=== PATIENT | female | born 1965 | race Caucasian/White ===

== ENCOUNTER 2017-01-11 06:38 | Day surgery (SDC) | payer BC ==
[2017-01-09 17:32] LABS: HEMOGLOBIN 13.8 g/dL (12.0-16.0)
[2017-01-09 17:56] LABS: BUN (BLOOD UREA NITROGEN) 17 MG/DL (6-23); CALCIUM, SERUM 9.5 MG/DL (8.5-10.4); CHLORIDE, SERUM 102 MMOL/L (96-112); CO2 (CARBON DIOXIDE) 27 MMOL/L (24-34); GFR AFRICAN AMERICAN 98 ML/MIN (>=60); GFR NON AFRICAN AMERICAN 84 ML/MIN (>=60); SODIUM, SERUM 138 MMOL/L (135-148)
[2017-01-09 17:58] LABS: GLUCOSE, SERUM 84 MG/DL (60-99)
--- NOTE | ~2017-01-11 | OP ---
Record Of Operation [facility] [address] [place]. [address] NAME: JASMEET VELEZ : 61 STATUS : REG [place] PAT#: [id number] AGE: 51 ADM/REG DATE : 01/11/17 MR#: [id number] REPORT SERV DATE: 01/11/17 DICTATED BY: LOLIS PULIDO DATE: 01/11/17 REPORT STATUS : Draft TRANSCRIBED BY: MODL DATE: 01/11/17 DATE OF PROCEDURE: 01/11/2017 PREOPERATIVE DIAGNOSIS: High-grade left subclavian artery stenosis with left upper extremity ischemia. POSTOPERATIVE DIAGNOSIS: High-grade left subclavian artery stenosis with left upper extremity ischemia. PROCEDURE: 1. Ultrasound-guided percutaneous access, right common femoral artery. 2. Arch aortogram. 3. Selective catheterization, left subclavian artery, with the left subclavian arteriogram. SURGEON: Lolis Pulido M.D. ENVIRONMENTAL HEALTH NURSE: Jorge Luis. ANESTHESIA: Local with MAC. ESTIMATED BLOOD LOSS: 20 mL. CONTRAST: 63 mL. IV FLUIDS: 500 mL. COMPLICATIONS: None. INDICATIONS: Ms. Velez is a pleasant 51-year-old female, with left upper extremity ischemic symptoms. She was found to have high-grade left subclavian artery stenosis. She is brought today for arteriogram and possible percutaneous treatment of the stenosis. DETAILS OF PROCEDURE: After informed consent was obtained, the patient was brought to the endovascular suite, and placed in supine position. After administration of IV sedation, she is prepped and draped in usual sterile fashion. A time-out was performed. I commenced the procedure with ultrasound-guided percutaneous access to the right common femoral artery. This was done after anesthetizing the right groin with local anesthetic. A permanent image of the artery documenting its patency was saved and stored in the patient's chart. I accessed with a micropuncture needle and passed a micropuncture wire, and confirmed intra- arterial under fluoroscopy. I then placed a micropuncture sheath. I then up-sized to a 5- Telugu sheath over a Bentson wire. I advanced the Bentson wire and Zoe flush catheter into the aortic arch. We systemically heparinized. I then performed arch aortogram. It showed a patent nonaneurysmal aortic arch. There was a normal arch vessel configuration. It was a type 1 arch. The origins of the innominate and left common carotid artery were widely patent with no stenosis. The left subclavian origin was patent, but just beyond the Record Of Operation [address] [place]. [address] NAME: JASMEET VELEZ : 61 STATUS : REG [place] PAT#: [id number] AGE: 51 ADM/REG DATE : 01/11/17 MR#: [id number] REPORT SERV DATE: 01/11/17 DICTATED BY: LOLIS PULIDO. DATE: 01/11/17 REPORT STATUS : Draft TRANSCRIBED BY: NIKKI DATE: 01/11/17 origin, there was a long segment stenosis. The left subclavian artery also takes a sharp near 90 degree turns just beyond the stenosis. There was also stenosis with high-grade just distal to the vertebral artery origin. After that, I used a bur 2 and Glidewire to engage the left subclavian origin. We upsized to a 65 sheath. Multiple views were taken, left subclavian artery which confirmed a long segment high-grade stenosis proximal to the vertebral artery, but again a high-grade stenosis just distal vertebral artery. Given the long length of the stenosis, the stenosis beyond the vertebral artery, and the sharp turn in the subclavian artery was not felt to be a good candidate for stent placement. As a result, wires and catheters were removed. Right femoral artery arteriogram shows the puncture site in the distal common femoral artery. As a result ProGlide closure device was deployed for hemostasis. The patient tolerated the procedure well with no complications. I was present for this entire case as dictated. She will be recommended for carotid subclavian bypass. AUGUST/NIKKI Lolis Pulido M.D. / [id number] CC: Elsa Zafar M.D. Gt Durant M.D. Nolan Falcon M.D., [facility]
[~2017-01-11 06:38] MED LIST: ACET500CAP PO; ADVIL PO; ASAB PO; BIEST PO; BIOTIN5 MG PO; CENTRUM PO; DIOV80 PO; FORTAMET1000 MG PO; GLUCPH PO; MAX25 PO; NASACORTAQ NAS; NASONEX NAS; NEXIUM40 PO; PLAQ200B PO; PROG PO; SYN.05 PO; TES PO; VITAMIN B PO; VITAMIN D2000 UNIT PO; VITAMIN D31000 UNIT PO; Z300 PO; ZOCOR40 PO
[2017-01-16] MEDS ORDERED: BIOIDENTICAL HORMONE SL (15:08)
[2017-01-16] MEDS ORDERED: FIORICET 50-301 EACH PO (15:09)
== END 2017-01-11 17:03 | disposition home or self-care (01) ==
LOC: SDC 06:38 → PREPOST2 14:05 → SSU2 15:16
PROVIDERS: Surgery
PROC: B312YZZ Fluoroscopy of Left Subclavian Artery using Other Contrast (ICD-10-PCS; principal; 2017-01-11 08:15)
DX: I70.8 Atherosclerosis of other arteries (principal); M06.9 Rheumatoid arthritis, unspecified; J45.909 Unspecified asthma, uncomplicated; E11.9 Type 2 diabetes mellitus without complications; E03.9 Hypothyroidism, unspecified; E78.5 Hyperlipidemia, unspecified; I10 Essential (primary) hypertension; I25.10 Atherosclerotic heart disease of native coronary artery without angina pectoris; I24.9 Acute ischemic heart disease, unspecified; I82.409 Acute embolism and thrombosis of unspecified deep veins of unspecified lower extremity; Z88.0 Allergy status to penicillin; Z88.5 Allergy status to narcotic agent; Z79.84 Long term (current) use of oral hypoglycemic drugs; Z79.82 Long term (current) use of aspirin; Z79.899 Other long term (current) drug therapy
CPT/HCPCS: 36215; 36221; 75710; 76937; 80048; 82962; 84703; 85014; 85018; 93005; A9270-GY; C1760; C1769; C1894; J2250; J2370; J2405; J3010; Q9966

== ENCOUNTER 2017-01-17 13:13 | Inpatient (IN) | payer BC ==
--- NOTE | ~2017-01-17 | OP ---
Record Of Operation [facility] [address] [place]. [address] NAME: JASMEET VELEZ : 61 STATUS : ADM IN PAT#: [id number] AGE: 51 ADM/REG DATE : 01/17/17 MR#: [id number] REPORT SERV DATE: 01/18/17 DICTATED BY: LOLIS PULIDO DATE: 01/18/17 REPORT STATUS : Draft TRANSCRIBED BY: MODL DATE: 01/18/17 DATE OF PROCEDURE: 01/17/2017 PREOPERATIVE DIAGNOSES: High-grade left subclavian artery stenosis with left upper extremity ischemic symptoms and left subclavian steal. POSTOPERATIVE DIAGNOSES: High-grade left subclavian artery stenosis with left upper extremity ischemic symptoms and left subclavian steal. PROCEDURE: Left common carotid artery to left subclavian artery bypass (6 mm Hemashield graft). SURGEON: Lolis Pulido M.D. CRUDE UNIT OPERATOR: Jorge Luis. ANESTHESIA: General endotracheal. ESTIMATED BLOOD LOSS: 50 mL. COMPLICATIONS: None. INDICATIONS: Ms. Velez is a pleasant 51-year-old female with the above listed symptoms due to left subclavian artery lesion that is not amenable to percutaneous treatment. She is recommended for left carotid subclavian bypass. DETAILS OF PROCEDURE: After informed consent was obtained, the patient was brought to the operating room, placed in supine position. After administration of anesthesia, she was intubated. She was prepped and draped in the usual sterile fashion. A time-out was performed. I performed a left supraclavicular incision. I dissected down through the platysma and subcutaneous tissues with cautery. The clavicular head of the sternocleidomastoid was divided. The scalene fat pad was mobilized, cephalad and laterally. The thoracic duct was identified and ligated. External jugular vein was identified, ligated, and then transected. We exposed the anterior scalene. We identified the phrenic nerve. It was mobilized and preserved. The scalene was divided under direct visualization. Underlying scalene was subclavian. There was no palpable pulse on the subclavian artery consistent with a high-grade stenosis or near occlusion. We mobilized the subclavian and encircled it proximally and distally with vessel loops. Then through the same incision, we exposed the proximal left common carotid artery. It is pulsatile and healthy in appearance. We encircled it with vessel loops proximally and distally. The vagus nerve was identified and preserved. After that, we systemically heparinized. We selected a 6 mm Hemashield graft. After the heparin circulated, we clamped the subclavian artery proximally and distally. We performed arteriotomy and enlarged with an aortic punch. We then performed end-to-side anastomosis of the Hemashield graft of the subclavian artery with running 5-0 HS 7. We then performed end-to-side anastomosis of the other end of the graft to the left common carotid artery. This was sewn in place end-to-side with running 5-0 HS-7. We Record Of Operation [facility] [address] [place]. [address] NAME: JASMEET VELEZ : 61 STATUS : ADM IN [facility]#: [id number] AGE: 51 ADM/REG DATE : 01/17/17 MR#: [id number] REPORT SERV DATE: 01/18/17 DICTATED BY: LOLIS PULIDO DATE: 01/18/17 REPORT STATUS : Draft TRANSCRIBED BY: NIKKI DATE: 01/18/17 flushed after completing the suture line of the carotid artery. We flushed distally. We then released the proximal carotid clamp and subclavian clamps with the distal carotid clamp for further flushing. After several seconds, the carotid clamp was released. Suture lines were hemostatic. The graft and subclavian artery obviously pulsatile. Normal Doppler signals were appreciated in the proximal distal common carotid artery as well as the subclavian artery. Palpable radial pulse was dissected at the wrist. Strong Doppler signals were detected at the wrist, which completely disappeared with temporary occlusion of the bypass graft. After that, we irrigated with sterile saline. We ensured hemostasis. We checked again for lymphatic leak and there was none. We then placed a round 15 Morris drain in the base of the incision. It has brought out a separate stab incision laterally. Secured the skin with 2-0 nylon. After that, we covered the bypass graft with the scalene fat pad. We reapproximated the clavicular heads of the sternocleidomastoid muscle. We then closed the platysmal layer with running 2-0 Vicryl. The skin was closed with running 4-0 Monocryl in a subcuticular fashion. Dermabond was applied. The patient tolerated the procedure well. There were no complications. I was present for this entire case as dictated. While still in the operating room, the patient was allowed to awaken from anesthesia. She followed commands and moved all four extremities symmetrically. AUGUST/NIKKI Lolis Pulido M.D. / [id number] CC: Elsa Zafar M.D.
[~2017-01-17 13:13] MED LIST changes: +BIOIDENTICAL HORMONE SL; +FIORICET 50-301 EACH PO
[2017-01-17 20:44] LABS: HEMATOCRIT 37.2 % (36.0-48.0); HEMOGLOBIN 12.5 g/dL (12.0-16.0)
[2017-01-19 09:21] LABS: BASOPHILS 0.4 %; BASOPHILS ABSOLUTE 0.04 10/3/uL (0.0-0.16); EOSINOPHILS 1.2 %; EOSINOPHILS ABSOLUTE 0.11 10/3/uL (0.0-0.53); HEMATOCRIT 37.6 % (36.0-48.0); HEMOGLOBIN 12.1 g/dL (12.0-16.0); IMMATURE GRANULOCYTES 0.4 %; IMMATURE GRANULOCYTES ABSOLUTE 0.04 10/3/uL (0.0-0.11); LYMPHOCYTES 34.1 %; LYMPHOCYTES ABSOLUTE 3.25 10/3/uL (0.67-4.30); MEAN CORPUSCULAR HEMOGLOB 30.9 pg (26.0-34.0); MEAN PLATELET VOLUME 10.4 fL (9.2-13.0); MONOCYTES ABSOLUTE 0.95 10/3/uL (0.21-1.20); NEUTROPHILS 53.9 %; NEUTROPHILS ABSOLUTE 5.14 10/3/uL (2.02-8.40); PLATELET COUNT 226 10/3/uL (150-400); RBC DISTRIBUTION WIDTH 13.2 % (12.0-16.0); RED CELL COUNT 3.92 10/6/uL (4.0-5.6)
[2017-01-19 09:22] LABS: MANUAL DIFF NO %; MEAN CORPUS HGB CONC 32.2 g/dL (32.0-36.0); MEAN CORPUSCULAR VOLUME 95.9 fL (80-100); WHITE BLOOD CELLS 9.5 10/3/uL (4.5-10.5)
[2017-01-19 09:45] LABS: ALBUMIN 3.4 G/DL (3.5-5.0); ALKALINE PHOSPHATASE 48 U/L (45-117); BUN (BLOOD UREA NITROGEN) 20 MG/DL (6-23); CALCIUM, SERUM 8.6 MG/DL (8.5-10.4); CHLORIDE, SERUM 111 MMOL/L (96-112); CO2 (CARBON DIOXIDE) 28 MMOL/L (24-34); CREATININE 0.92 MG/DL (0.55-1.02); GFR AFRICAN AMERICAN 82 ML/MIN (>=60); GFR NON AFRICAN AMERICAN 71 ML/MIN (>=60); GLOBULIN 3.3 G/DL (2.5-4.1); GLUCOSE, SERUM 90 MG/DL (60-99); PHOSPHORUS, SERUM 2.1 MG/DL (2.5-4.5); POTASSIUM, SERUM 4.1 MMOL/L (3.5-5.3); SGOT(AST) 14 U/L (5-40); SGPT(ALT) 22 U/L (5-65); SODIUM, SERUM 144 MMOL/L (135-148); TOTAL PROTEIN 6.7 G/DL (6.0-8.5)
[2017-01-19] MEDS ORDERED: PCET PO (16:48)
== END 2017-01-19 18:06 | disposition home or self-care (01) | DRG 253 ==
LOC: SDC/OF 13:13 → CVICU 20:17 → 2SO 01-18 14:44
PROVIDERS: Surgery
PROC: 031 Upper Arteries, Bypass (ICD-10-PCS; principal; 2017-01-17 15:15)
DX: I70.218 Atherosclerosis of native arteries of extremities with intermittent claudication, other extremity (principal); G45.8 Other transient cerebral ischemic attacks and related syndromes; I10 Essential (primary) hypertension; E11.9 Type 2 diabetes mellitus without complications; E78.5 Hyperlipidemia, unspecified; M06.9 Rheumatoid arthritis, unspecified; E03.9 Hypothyroidism, unspecified; J45.909 Unspecified asthma, uncomplicated; I65.9 Occlusion and stenosis of unspecified precerebral artery; I70.1 Atherosclerosis of renal artery; Z98.890 Other specified postprocedural states; Z82.49 Family history of ischemic heart disease and other diseases of the circulatory system; Z82.3 Family history of stroke; Z80.8 Family history of malignant neoplasm of other organs or systems; Z88.0 Allergy status to penicillin; Z88.5 Allergy status to narcotic agent
CPT/HCPCS: 80053; 82330; 82962; 83735; 84100; 85014; 85018; 85025; 87641; 93005; A9270-GY; C1768; J0690; J2250; J2270; J2370; J2405; J2710; J3010